=== PATIENT | male | born 1960 | race Caucasian/White ===

== ENCOUNTER → 2017-02-26 | Outpatient (CLI) | payer BC ==
[2017-02-26 14:23] LABS: ANISOCYTOSIS PRESENT; BASO ABS # 0.04 K/uL (0-0.2); COMPLETE YES; EOS % 4.1 %; HEMATOCRIT 31.4 % (42-52); LARGE PLATELETS 3+; LYMPH % 31.4 %; LYMPH ABS # 1.23 K/uL (1.2-3.4); MEAN CELL VOLUME 80.5 fL (80-100); MEAN CORPUSCULAR HEMOGLOBIN 23.3 pg (25-34); MONO % 9.4 %; NEUT % 54.1 %; PLATELET COUNT 75 K/uL (130-400); PLT ESTIMATE DECREASED; WHITE BLOOD COUNT 3.92 K/uL (4.8-10.8)
[2017-02-26 14:31] LABS: BLOOD UREA NITROGEN 10 mg/dl (7-18); BUN/CREATININE RATIO 10.3 (10-20); CALCIUM 8.7 mg/dl (8.5-10.1); CARBON DIOXIDE 22 mmol/L (21-32); CHLORIDE 113 mmol/L (98-107); CHOLESTEROL 133 mg/dl (0-200); GLUCOSE 93 mg/dl (70-99); SODIUM 143 mmol/L (136-145)
[2017-02-26 14:36] LABS: ALKALINE PHOSPHATASE 74 U/L (45-117); ALT/SGPT 29 U/L (12-78); AST/SGOT 27 U/L (15-37); CHOLESTEROL/HDL RATIO 2.6; HDL CHOLESTEROL 51 mg/dl; LDL CHOLESTEROL CALCULATED 66 mg/dl; PROSTATE SPECIFIC ANTIGEN 0.604 ng/ml (0.000-4.000); TRIGLYCERIDES 79 mg/dl (0-150); VERY LOW DENSITY LIPOPROT CALC 16 mg/dl
== END | disposition home or self-care (01) ==
LOC: C.LABMFLN 07:32
PROVIDERS: ATTEND Family Medicine
DX: K50.90 Crohn's disease, unspecified, without complications (principal); I10 Essential (primary) hypertension; Z12.5 Encounter for screening for malignant neoplasm of prostate; D69.6 Thrombocytopenia, unspecified; K76.6 Portal hypertension

== ENCOUNTER → 2017-06-04 | Outpatient (CLI) | payer BC ==
[2017-06-04 18:24] LABS: HEMATOCRIT 38.8 % (42-52); HEMOGLOBIN 12.8 g/dL (14.0-18.0); MEAN CELL VOLUME 93.3 fL (80-100); MEAN CORPUSCULAR HEMOGLOBIN 30.8 pg (25-34); MEAN PLATELET VOLUME 11.2 fL (7.4-10.4); PLATELET COUNT 76 K/uL (130-400); RED CELL DISTRIBUTION WIDTH CV 15.6 % (11.5-14.5); RED CELL DISTRIBUTION WIDTH SD 52.8 fL (36.4-46.3); WHITE BLOOD COUNT 4.38 K/uL (4.8-10.8)
[2017-06-04 19:38] LABS: TRANSFERRIN 297 mg/dl (200-360)
== END | disposition home or self-care (01) ==
LOC: C.LABMFLN 15:06
PROVIDERS: ATTEND Family Medicine
DX: D64.9 Anemia, unspecified (principal)